=== PATIENT | male | born 1950 | race Caucasian/White ===

== ENCOUNTER 2017-07-03 06:58 | Day surgery (SDC) | payer BC, MEDICARE ==
[~2017-07-03 06:58] MED LIST: Lactated Ringers 1,000 ML IV SCH; Lidocaine 1%/Sod Bicarbonate in NS 8.4% 1 ML Syringe IDERM PRN; Sodium Chloride 0.9% 10 ML Syringe FLUSH PRN
[2017-07-03] MEDS ORDERED: Albuterol 0.083% 2.5 MG/3 ML Neb Soln NEB SCH (07:00)
[2017-07-03] MEDS ORDERED: Propofol 200 MG/20 ML SDV ONE (07:15)
[2017-07-03] MEDS ORDERED: fentaNYL 100 MCG/2 ML SDV ONE (07:15)
[2017-07-03] MEDS ORDERED: Lidocaine 1% 4 ML ONE (07:16)
[2017-07-03] MEDS ORDERED: Midazolam 1 MG/ML 2 ML SDV ONE (07:18)
--- NOTE | 2017-07-03 07:43 | PCM.PREANE ---
Preanesthetic Assessment - Anesthesia/Transfusion/Family Hx Anesthesia History: Prior Anesthesia Without Reaction Family History of Anesthesia Reaction: No Transfusion History: No Prior Transfusion(s) - Review of Systems General: No Symptoms Pulmonary: Shortness of Breath, Wheezing (Left side wheezing, took his inhalers and nebulizer this morning. ), Cough Gastrointestinal: No Symptoms Neurological: No Symptoms Other: Reports: Easy Bleeding, Easy Bruising - Physical Assessment NPO Status Date: 07/02/17 NPO Status Time: 23:30 Pulse: 55 O2 Sat by Pulse Oximetry: 92 Respiratory Rate: 20 Blood Pressure: 134/88 Temperature: 36.3 C Weight: 80 kg ASA Class: 3 Mental Status: Alert & Oriented x3 Airway Class: Mallampati = 1 Dentition: Reports: Dentures Thyro-Mental Finger Breadths: 3 Mouth Opening Finger Breadths: 3 ROM/Head Extension: Full Lungs: Clear to Auscultation, Normal Respiratory Effort, Decreased Breath Sounds , Wheezing (Left side wheezing, patient states he is always wheezing.) Cardiovascular: Irregular Rhythm - Allergies Allergies/Adverse Reactions: Allergies Allergy/AdvReac Type Severity Reaction Status Date / Time No Known Allergies Allergy Verified 07/02/17 13:26 - Anesthesia Plan Beta Scott: Metoprolol Med Last Dose Date: 07/03/17 Med Last Dose Time: 05:50 - Acknowledgements Anesthesia Type Planned: MAC Pt an Appropriate Candidate for the Planned Anesthesia: Yes Alternatives and Risks of Anesthesia Discussed w Pt/Guardian: Yes Pt/Guardian Understands and Agrees with Anesthesia Plan: Yes Additional Comments: Spoke with the patient and Dr. RodriguezMarcie Segal's respiratory status is guarded. He understands it is possible he would need to be intubated and put on ventilatory support. He is understanding of minimal anesthetic to try and maintain his respiratory status. Patient wishes to proceed with his procedure. PreAnesthesia Questionnaire HEENT History: Reports: Other (See Below) Other HEENT History: has dentures Cardiovascular History: Reports: Afib, High Cholesterol, Hypertension, Other ( See Below) Other Cardiovascular History: pulmonary hypertension Respiratory History: Reports: SOB, Other (See Below) Other Respiratory History: hypoxemia, emphysema, pulmonary nodule, pulmonary HTN , alpha I antitrypsin deficiency Gastrointestinal History: Reports: Hemorrhoids Genitourinary History: Reports: None RN UROLOGY History: Reports: None Musculoskeletal History: Reports: Other (See Below) Other Musculoskeletal History: right foot pain, finger fracutre Neurological History: Reports: None Psychiatric History: Reports: None Endocrine/Metabolic History: Reports: None Hematologic History: Reports: None Immunologic History: Reports: None Oncologic (Cancer) History: Reports: None Dermatologic History: Reports: None - Past Surgical History Head Surgeries/Procedures: Reports: None Cardiovascular Surgical History: Reports: None Respiratory Surgical History: Reports: None GI Surgical History: Reports: Other (See Below) Other GI Surgeries/Procedures: hemorrhoidectomy Female Surgical History: Reports: None Male Surgical History: Reports: None Endocrine Surgical History: Reports: None Neurological Surgical History: Reports: None Musculoskeletal Surgical History: Reports: None Oncologic Surgical History: Reports: None Dermatological Surgical History: Reports: None - SUBSTANCE USE Smoking Status *Q: Former Smoker Second Hand Smoke Exposure: No Days Per Week of Alcohol Use: 0 Recreational Drug Use History: No - HOME MEDS Home Medications: Home Meds Albuterol Sulfate [Albuterol Sulfate HFA] 2 puff INH Q4H PRN 08/11/14 [History] Aspirin [Halfprin] 81 mg PO DAILY 08/11/14 [History] [place]-3 Fatty Acids/Fish Oil [Cvs Fish Oil 1,000 mg Softgel] 1 cap PO DAILY 07/23 [History] Warfarin [Coumadin] 2 mg PO GUERRERO 08/11/14 [History] Warfarin [Coumadin] 4 mg PO [id number] 08/11/14 [History] diphenhydrAMINE [Benadryl] 50 mg PO DAILY 08/11/14 [History] Albuterol/Ipratropium [DuoNeb 3.0-0.5 MG/3 ML] 1 dose NEB QID 07/02/17 [History] Uznio-9-Aokbsmuhrx Inhibitor [Prolastin C] 1,000 mg .ROUTE Q14D 07/02/17 [ History] Arformoterol [Brovana] 1 dose NEB BID 07/02/17 [History] Ascorbic Acid [Vitamin C with [place] Hips] 1,000 mg PO DAILY 07/02/17 [History] Budesonide [Pulmicort] 1 dose NEB BID 07/02/17 [History] Cholecalciferol (Vitamin D3) [Vitamin D] 5,000 unit PO DAILY 07/02/17 [History] Diltiazem HCl [Cardizem] 120 mg PO DAILY 07/02/17 [History] Metoprolol Succinate 50 mg PO DAILY 07/02/17 [History] Potassium 99 mg PO BID 07/02/17 [History] Pravastatin Sodium 20 mg PO DAILY 07/02/17 [History] Vitamin E 400 units PO DAILY 07/02/17 [History] - CURRENT (IN HOUSE) MEDS Current Meds: Current Medications Albuterol (Proventil Neb Soln) 2.5 mg NEB ONETIME JERONIMO Stop: 07/03/17 16:00 Lactated Ringer's (Ringers, Lactated) 1,000 mls @ 125 mls/hr IV ASDIRECTED JERONIMO Stop: 07/03/17 23:00 Lidocaine/Sodium Bicarbonate (Buffered Lidocaine 1% In Ns 8.4%) 0.25 ml IDERM ONETIME PRN PRN Reason: Prior to IV Start Stop: 07/03/17 18:00 Sodium Chloride (Saline Flush) 10 ml FLUSH ASDIRECTED PRN PRN Reason: Keep Vein Open Stop: 07/03/17 18:00 Discontinued Medications Fentanyl (Sublimaze) Confirm Administered Dose 100 mcg .ROUTE .STK-MED ONE Stop: 07/03/17 07:16 Lidocaine HCl (Xylocaine-Mpf 1%) Confirm Administered Dose 4 mls @ as directed .ROUTE .STK-MED ONE Stop: 07/03/17 07:17 Midazolam HCl (Versed 1 Mg/Ml) Confirm Administered Dose 2 mg .ROUTE .STK-MED ONE Stop: 07/03/17 07:19 Propofol (Diprivan 20 Ml) Confirm Administered Dose 400 mg .ROUTE .STK-MED ONE Stop: 07/03/17 07:16
--- NOTE | 2017-07-03 08:21 | PCM.OPNOTE ---
- General Post-Op/Procedure Note Date of Surgery/Procedure: 07/03/17 Operative Procedure(s): Colonoscopy with cold forceps biopsy Findings: Moderate diverticulosis, 2 mm sigmoid polyp Pre Op Diagnosis: Heme Positive Stool Post-Op Diagnosis: Moderate Diverticulosis, 2 mm sigmoid polyp Anesthesia Technique: MAC Primary Surgeon: Anupam Ellis Pathology: 2 mm sigmoid polyp EBL in mLs: 5 Complications: None Condition: Good Free Text/Narrative:: After patient gave verbal and written consent he was placed on blood pressure and pulse ox monitoring. He was given IV sedation which he tolerated well. The olympus colonoscope was inserted per rectum and advanced to the cecum without difficulty. The ileocecal valve and appendiceal orfice were imaged documenting cecal intubation. The scope was slowly withdrawn. The prep was good, the views were good. Moderate diverticulosis was noted in the ascending and sigmoid colon. No stigmata of active bleeding was noted. A 2 mm distal sigmoid polyp was noted and removed with cold forceps biopsy. There was good hemostasis after procedure. The colonoscope was then retroflexed in the rectum. The scope was then withdrawn.
[2017-07-03] MEDS ORDERED: Albuterol 0.083% 2.5 MG/3 ML Neb Soln NEB PRN (08:30)
--- NOTE | 2017-07-03 09:34 | PCM48HPAN ---
Post Anesthesia Note - EVALUATION WITHIN 48HRS OF ANESTHETIC Vital Signs in Normal Range: Yes Patient Participated in Evaluation: Yes Respiratory Function Stable: Yes Airway Patent: Yes Cardiovascular Function Stable: Yes Hydration Status Stable: Yes Pain Control Satisfactory: Yes Nausea and Vomiting Control Satisfactory: Yes Mental Status Recovered: Yes Pulse Rate: 55 Resp Rate: 16 Temperature: 36.3 C Blood Pressure: 134/88
[2017-07-03 11:48] VITALS: BP 112/100
== END 2017-07-03 09:55 | disposition home or self-care (01) ==
LOC: JD.SDS 06:58
PROVIDERS: ATTEND Family Medicine
DX: D12.5 Benign neoplasm of sigmoid colon (principal); K57.30 Diverticulosis of large intestine without perforation or abscess without bleeding; I27.20 Pulmonary hypertension, unspecified; E78.00 Pure hypercholesterolemia, unspecified; I48.2 Chronic atrial fibrillation; Z79.01 Long term (current) use of anticoagulants; Z79.899 Other long term (current) drug therapy; Z79.82 Long term (current) use of aspirin; Z87.891 Personal history of nicotine dependence
CPT/HCPCS: 45380; J2250; J3010; J7120; J2704